=== PATIENT | male | born 1995 | race Caucasian/White ===

== ENCOUNTER 2017-09-30 00:06 | Emergency (ER) | payer BC ==
[~2017-09-30] VITALS: Ht 177.8 cm; Wt 84.5 kg
[~2017-09-30 00:06] MED LIST: BENZTROPINE ME0.5 MG PO; BENZTROPINE MESY1 MG PO; CLONAZEPAM0.5 MG PO; DIVALPROEX SOD500 M1 PO; HALOPERIDOL5 MG PO; PERPHENAZINE4 MG PO; PROPRANOLOL HCL20 MG PO; RISPERDAL2 MG PO; RISPERIDONE3 MG PO; SEROQUEL XR300 MG PO
[2017-09-30 04:23] VITALS: BP 139/80
== END 2017-09-30 04:43 | disposition home or self-care (01) ==
LOC: EME 00:06
DX: F31.9 Bipolar disorder, unspecified (principal); F25.0 Schizoaffective disorder, bipolar type; F17.200 Nicotine dependence, unspecified, uncomplicated
CPT/HCPCS: 90839; 99281; 99284; G0480

== ENCOUNTER 2017-10-01 12:27 | Emergency (ER) | payer BC ==
[~2017-10-01] VITALS: Ht 177.8 cm; Wt 81.8 kg
[2017-10-01 13:12] VITALS: BP 104/63
== END 2017-10-01 13:13 | disposition left against medical advice (07) ==
LOC: EME 12:27
DX: Z63.0 Problems in relationship with spouse or partner (principal); F17.200 Nicotine dependence, unspecified, uncomplicated
CPT/HCPCS: 99281; 99283

== ENCOUNTER 2017-10-02 08:22 | Inpatient (IN) | payer BC ==
[~2017-10-02] VITALS: Ht 182.9 cm; Wt 85.4 kg
[2017-10-02 16:13] VITALS: BP 139/87
[2017-10-03 07:34] VITALS: BP 138/76
[2017-10-03 17:36] VITALS: BP 84/63
[2017-10-03 19:17] VITALS: BP 129/62
[2017-10-04 15:37] VITALS: BP 157/71
[2017-10-05 07:31] VITALS: BP 133/76
[2017-10-05 15:09] VITALS: BP 127/90
[2017-10-06 08:52] VITALS: BP 144/89
[2017-10-06 15:13] VITALS: BP 156/66
[2017-10-07 07:25] VITALS: BP 132/60
[2017-10-07 15:19] VITALS: BP 155/88
[2017-10-08 07:42] VITALS: BP 122/58
[2017-10-09 15:54] VITALS: BP 139/83
[2017-10-10 09:00] VITALS: BP 148/85
[2017-10-10 15:34] VITALS: BP 142/90
[2017-10-11 15:26] VITALS: BP 120/77
[2017-10-12 15:21] VITALS: BP 141/76
[2017-10-13 07:40] VITALS: BP 129/72
[2017-10-13 14:53] VITALS: BP 142/77
[2017-10-14 07:48] VITALS: BP 105/67
[2017-10-14 15:18] VITALS: BP 153/93
[2017-10-14 18:37] VITALS: BP 146/85
[2017-10-15 07:37] VITALS: BP 127/69
[2017-10-15 15:56] VITALS: BP 141/75
[2017-10-16 07:35] VITALS: BP 97/50
[2017-10-16 15:51] VITALS: BP 138/66
[2017-10-17 07:43] VITALS: BP 116/56
[2017-10-17 16:13] VITALS: BP 156/68
[2017-10-17 19:28] VITALS: BP 133/61
[2017-10-18 07:48] VITALS: BP 102/62
[2017-10-18 15:48] VITALS: BP 119/58
[2017-10-19 07:38] VITALS: BP 108/68
[2017-10-19 15:14] VITALS: BP 115/63
[2017-10-20 07:49] VITALS: BP 136/63
[2017-10-20 15:39] VITALS: BP 138/77
[2017-10-20 18:24] LABS: ADD MIUA? NO; BILIRUBIN NEGATIVE; BLOOD NEGATIVE; COLOR STRAW ((YELLOW)); GLUCOSE (STRIP) NEGATIVE; KETONES NEGATIVE; LEUKOCYTES NEGATIVE; NITRITE NEGATIVE; PROTEIN (STRIP) NEGATIVE; SPECIFIC GRAVITY 1.009 (1.000-1.030); UROBILINOGEN 0.2 MG/DL (0.2-1.0)
[2017-10-21 07:57] VITALS: BP 109/66
[2017-10-21] MEDS ORDERED: CLONAZEPAM0.5 MG PO (09:45)
[2017-10-21] MEDS ORDERED: BENZTROPINE MESY1 MG PO (09:45)
[2017-10-21] MEDS ORDERED: ZYPREXA20 MG PO (09:45)
[2017-10-21] MEDS ORDERED: DIVALPROEX SOD500 M1 PO (09:45)
[2017-10-21] MEDS ORDERED: FLUPHENAZINE HC10 MG PO (09:45)
== END 2017-10-21 14:04 | disposition home or self-care (01) | DRG 885 ==
LOC: EME 08:22 → EDOF 12:50 → 1WEST 12:50 → ENRESERV 15:47 → 1WEST 16:12
PROVIDERS: Psychiatry & Neurology Psychiatry
DX: F25.0 Schizoaffective disorder, bipolar type (principal); R45.850 Homicidal ideations; R45.851 Suicidal ideations; Z59.0 Homelessness; Z56.0 Unemployment, unspecified; G47.00 Insomnia, unspecified; F22 Delusional disorders; F17.200 Nicotine dependence, unspecified, uncomplicated; R32 Unspecified urinary incontinence; Z91.14 Patient's other noncompliance with medication regimen
CPT/HCPCS: 80048; 80164; 81003; 84999; 85025; 90837; 90839; 97150 GO; 97166 GO; 97530 GO; 99281; 99283; 99284; 99285; G0480; Q0177